=== PATIENT | female | born 1970 | race American Indian/Alaskan Native ===

== ENCOUNTER → 2018-02-14 | Outpatient (CLI) | payer MEDICARE | LOC: SLR 11:00 | PROVIDERS: ATTEND Otolaryngology | DX: G47.30 Sleep apnea, unspecified (principal); I10 Essential (primary) hypertension | CPT/HCPCS: 95810 ==

== ENCOUNTER 2018-03-14 11:00 | Outpatient (CLI) | payer MEDICARE | END 2018-03-14 11:01 | disposition home or self-care (01) | LOC: SLR 11:00 | PROVIDERS: ATTEND Otolaryngology | DX: G47.33 Obstructive sleep apnea (adult) (pediatric) (principal) | CPT/HCPCS: 95811 ==

== ENCOUNTER 2018-10-21 20:02 | Inpatient (IN) | payer MEDICARE ==
[2018-10-21] MEDS ORDERED: DECADRON IV ONE (20:14)
[2018-10-21] MEDS ORDERED: BENADRYL IV ONE (20:14)
[2018-10-21] MEDS ORDERED: PEPCID IV ONE (20:16)
--- NOTE | 2018-10-21 20:27 | Emergency Department Report ---
HPI - General Chief Complaint: Dyspnea/Respdistress Time Seen by Provider: 10/21/18 20:13 - HPI HPI: Room 2 The pt is a 48 y/o female p/w a cc of throat swelling. The pt states her sxs began 1 week ago with swelling of her neck and throat. The pt states she went to an Urgent Care clinic and was placed on steroids and benadryl. The pt states her sxs improved slightly but never resolved. Aprroximately 10 mins prior to arrival the pt states her symptoms worsened rapidly and she felt as though her throat was closing. ED Past Medical Hx - Past Medical History Hx Hypertension: Yes Additional medical history: Chronic back pain/dislocation - Surgical History Past Surgical History?: No Additional Surgical History: , Back surgery, carpal tunnel surg - Family History Family history: no significant - Social History Smoking Status: Never Smoker Substance Use Type: None - Medications Home Medications: Home Medications Medication Instructions Recorded Confirmed Last Taken Type Amoxicillin [Amoxicillin 250 MG/5 10 ml PO BID #200 ml 12/31/15 12/31/15 12/31/15 Rx Ml] Azithromycin [Zithromax TAB] 500 mg PO QDAY #7 tablet 12/31/15 Unknown Rx Diphenhydramine HCl [Benadryl 25 mg PO Q8HR #20 tablet 12/31/15 Unknown Rx Allergy TAB] Gabapentin [Neurontin] 300 mg PO TID 12/31/15 12/31/15 12/31/15 History HYDROcodone/APAP 7.5-325 [[place]] 15 ml PO Q4HR PRN #300 ml 12/31/15 12/31/15 12/31/15 Rx Lisinopril [Zestril] 20 mg PO QDAY 12/31/15 12/31/15 12/31/15 History Meloxicam [Mobic] 15 mg PO QDAY 12/31/15 12/31/15 12/31/15 History Oxycodone HCl/Acetaminophen 1 each PO Q6HR PRN 12/31/15 12/31/15 12/31/15 History [Percocet 10/325 mg] hydroCHLOROthiazide [HCTZ] 25 mg PO QDAY 12/31/15 12/31/15 12/31/15 History predniSONE [Deltasone] 20 mg PO QDAY #5 tab 12/31/15 Unknown Rx ED Review of Systems ROS: Stated complaint: TROUBLE SWALLOWING AND BREATHING Other details as noted in HPI Constitutional: no symptoms reported Eyes: denies: eye pain ENT: throat pain Respiratory: shortness of breath Endocrine: no symptoms reported Gastrointestinal: denies: abdominal pain Genitourinary: denies: dysuria Musculoskeletal: denies: back pain Skin: denies: lesions Neurological: denies: headache Physical Exam - Physical Exam Vital Signs: Vital Signs 10/21/18 10/21/18 20:11 20:20 Temperature 98.8 F Pulse Rate [ 84 Anterior Bilateral Throughout] Respiratory 22 Rate Respiratory 16 Rate [Anterior Bilateral Throughout] O2 Sat by Pulse 100 Oximetry Physical Exam: Gen: WD, WN female lying on stretcher appearing worried but in NAD HEENT- OP clear, there is no tongue swelling NECK: no stridor CV: rrr no m/r/g Lungs: CTA bilat Abd: s/nt/nd Skin: no rash or diaphoresis MS: no evidence of acute injury ED Course Vital Signs 10/21/18 10/21/18 20:11 20:20 Temperature 98.8 F Pulse Rate [ 84 Anterior Bilateral Throughout] Respiratory 22 Rate Respiratory 16 Rate [Anterior Bilateral Throughout] O2 Sat by Pulse 100 Oximetry - Reevaluation(s) Reevaluation #1: 10/21/18 20:53 pt states she feels much improved 10/21/18 20:53 Pt instructed to never take lisinopril or DAISY inhibitors again ED Medical Decision Making - Lab Data Result diagrams: 10/21/18 20:35 10/21/18 20:35 Laboratory Tests 10/21/18 10/21/18 20:35 20:35 WBC 11.7 H RBC 4.17 Hgb 12.5 Hct 37.5 MCV 90 MCH 30 MCHC 33 RDW 14.5 Plt Count 285 Lymph % (Auto) 29.9 [place] % (Auto) 7.3 Eos % (Auto) 0.6 Baso % (Auto) 1.4 Lymph # 3.5 [place] # 0.9 H Eos # 0.1 Baso # 0.2 H Seg Neutrophils % 60.8 Seg Neutrophils # 7.1 Sodium 138 Potassium 3.6 Chloride 97.3 L Carbon Dioxide 28 Anion Gap 16 BUN 16 Creatinine 0.7 Estimated GFR > 60 BUN/Creatinine Ratio 23 Glucose 168 H Calcium 8.9 - Radiology Data Radiology results: image reviewed (Soft tissue neck xr) interpreted by me: Soft tissue neck xr- no prevertebral swelling, no epiglottitis - Differential Diagnosis angioedema Critical care attestation.: If time is entered above; I have spent that time in minutes in the direct care of this critically ill patient, excluding procedure time. ED Disposition Clinical Impression: Angioedema, Shortness of breath Disposition: OP ADMIT IP TO THIS HOSP Is pt being admited?: Yes Does the pt Need Aspirin: No Condition: Fair Referrals: MILAD REYNOSO [Primary Care Provider] - 3-5 Days Time of Disposition: 21:01 (Hospitalist paged (Dr Limon))
[2018-10-21 20:47] LABS: Basophils # (Auto) 0.2 K/mm3 (0.0-0.1); Basophils % (Auto) 1.4 % (0.0-1.8); Eosinophils # (Auto) 0.1 K/mm3 (0.0-0.4); Eosinophils % (Auto) 0.6 % (0.0-4.3); Hematocrit 37.5 % (30.3-42.9); Hemoglobin 12.5 gm/dl (10.1-14.3); Lymphocytes # (Auto) 3.5 K/mm3 (1.2-5.4); Lymphocytes % (Auto) 29.9 % (13.4-35.0); Mean Corpuscular HGB Conc 33 % (30-34); Mean Corpuscular Volume 90 fl (79-97); Monocytes # (Auto) 0.9 K/mm3 (0.0-0.8); Monocytes % (Auto) 7.3 % (0.0-7.3); Platelet Count 285 K/mm3 (140-440); Red Blood Count 4.17 M/mm3 (3.65-5.03); Red Cell Distribution Width 14.5 % (13.2-15.2)
[2018-10-21 20:59] LABS: BUN/Creatinine Ratio 23; Blood Urea Nitrogen 16 mg/dL (7-17); Calcium 8.9 mg/dL (8.4-10.2); Hemolysis Index 8
--- NOTE | 2018-10-21 21:31 | XRay Report ---
FINAL REPORT EXAM: XR NECK SOFT TISSUE HISTORY: angioedema COMPARISON: None available. FINDINGS: Two views of the neck obtained. Visualized upper airway is patent. No suspicious thickening of the ep iglottis. Prevertebral soft tissues are within normal limits. IMPRESSION: Visualized upper airway is grossly patent by plain film.
[2018-10-21] MEDS ORDERED: SODIUM CHLORIDE FLUSH SYRINGE 10 ML IV PRN (22:03)
[2018-10-21] MEDS ORDERED: ZOFRAN IV PRN (22:03)
--- NOTE | 2018-10-21 22:03 | History and Physical Report ---
History of Present Illness Date of examination: 10/21/18 History of present illness: 48-year-old white male a history of hypertension, diabetes comes emergency room with complains of difficulty swallowing and her throat felt as if it was tightening up 2 weeks. Also complained that her tongue felt swollen. She was seen at the urgent care on Monday, she was given a shot of steroids, Benadryl and was discharged on a prednisone taper, however she continued to take her lisinopril. She returned today with the same symptoms. Status post racemic epi, steroids and Benadryl in the emergency room, states she feels better Review of systems Constitutional: no weight loss, chills, fever Ears, eyes, nose, mouth and throat: no nasal congestion, no nasal discharge, no sinus pressure, no vision change, no red eye. Neck: No neck pain or rigidity. Cardiovascular: no palpitations, chest pain Respiratory: no cough, shortness of breath Gastrointestinal: no hematochezia, abdominal pain Genitourinary : no frequency , no hematuria Musculoskeletal: no joint swelling or muscle ache Integumentary: no rash, no pruritis Neurological: no parathesias, no focal weakness Endocrine: no cold or heat intolerance, no polyuria or polydipsia Hematologic/Lymphatic: no easy bruising, no easy bleeding, no gland swelling Allergic/Immunologic: no urticaria PAST MEDICAL HISTORY: hypertension, diabetes PAST SURGICAL HISTORY: , back, carpal tunnel release SOCIAL HISTORY: Denies alcohol, drugs, tobacco FAMILY HISTORY: Hypertension Medications and Allergies Allergies Allergy/AdvReac Type Severity Reaction Status Date / Time amoxicillin Allergy Angioedema Verified 12/31/15 21:32 Home Medications Medication Instructions Recorded Confirmed Last Taken Type Amoxicillin [Amoxicillin 250 MG/5 10 ml PO BID #200 ml 12/31/15 12/31/15 Rx Ml] Azithromycin [Zithromax TAB] 500 mg PO QDAY #7 tablet 12/31/15 Unknown Rx Diphenhydramine HCl [Benadryl 25 mg PO Q8HR #20 tablet 12/31/15 Unknown Rx Allergy TAB] Gabapentin [Neurontin] 300 mg PO TID 12/31/15 12/31/15 12/31/15 History HYDROcodone/APAP 7.5-325 [[place]] 15 ml PO Q4HR PRN #300 ml 0312/31/15 12/31/15 Rx Lisinopril [Zestril] 20 mg PO QDAY 12/31/15 12/31/15 12/31/15 History Meloxicam [Mobic] 15 mg PO QDAY 12/31/15 12/31/15 12/31/15 History Oxycodone HCl/Acetaminophen 1 each PO Q6HR PRN 12/31/15 12/31/15 12/31/15 History [Percocet 10/325 mg] hydroCHLOROthiazide [HCTZ] 25 mg PO QDAY 12/31/15 12/31/15 12/31/15 History predniSONE [Deltasone] 20 mg PO QDAY #5 tab 12/31/15 Unknown Rx Exam - Physical Exam Narrative exam: General Apperance: The patient lying in bed, breathing comfortable HEENT: Normocephalic, atraumatic. Pupils equally round and reactive to light, EOMI, no sclericterus or JVD or thyromegaly or nodule. , no carotid bruit, mucous membranes moist, no exudate or erythema Heart: S1-S2, regular is rhythm Lungs: Clear to auscultation bilaterally, breathing comfortable Abdomen: Positive bowel sounds, soft, nontender, nondistended, no organomegaly Extremities: No edema cyanosis clubbing Skin: no rash, nodule, warm and dry Neuro: cranial nerves 2-12 intact, speech is fluent, motor/sensory intact - Constitutional Vitals: Temp Pulse Resp BP Pulse Ox 98.8 F 85 16 100 10/21/18 20:11 10/21/18 20:29 10/21/18 20:29 10/21/18 20:11 Results - Labs CBC & Chem 7: 10/21/18 20:35 10/21/18 20:35 Labs: Abnormal lab results 10/21/18 10/21/18 Range/Units 20:35 20:35 WBC 11.7 H (4.5-11.0) K/mm3 [place] # 0.9 H (0.0-0.8) K/mm3 Baso # 0.2 H (0.0-0.1) K/mm3 Chloride 97.3 L (98-107) mmol/L Glucose 168 H (65-100) mg/dL Assessment and Plan Extremities a soft tissue neck reviewed Assessment Angioedema secondary to DAISY inhibitor Hypertension Diabetes Plan Start steroids, Benadryl, Pepcid, hold DAISY inhibitor Check fingersticks and initiate insulin sliding scale DVT prophylaxis
[2018-10-21] MEDS ORDERED: D50W (25GM) Syringe IV PRN (22:52)
[2018-10-21] MEDS ORDERED: MORPHINE IV PRN (22:53)
[2018-10-21] MEDS: SOLU-Medrol IV SCH (23:28)
[2018-10-21] MEDS: BENADRYL IV SCH (23:28)
[2018-10-21] MEDS: NACL 0.45% 1000 ML 1,000 ML IV SCH (23:29)
[2018-10-22] MEDS: SOLU-Medrol IV SCH ×4 (04:16→23:35)
[2018-10-22] MEDS: BENADRYL IV SCH ×4 (04:16→23:35)
[2018-10-22 07:30] LABS: Hematocrit 37.1 % (30.3-42.9); Hemoglobin 12.8 gm/dl (10.1-14.3); Mean Corpuscular HGB Conc 35 % (30-34); Mean Corpuscular Volume 89 fl (79-97); Platelet Count 302 K/mm3 (140-440); Red Blood Count 4.15 M/mm3 (3.65-5.03); Red Cell Distribution Width 14.4 % (13.2-15.2)
[2018-10-22 07:36] LABS: BUN/Creatinine Ratio 19; Blood Urea Nitrogen 15 mg/dL (7-17); Calcium 8.7 mg/dL (8.4-10.2); Hemolysis Index 19
[2018-10-22] MEDS: HumaLOG SUB-Q SCH ×4 (08:25→21:57)
[2018-10-22] MEDS: LOVENOX SUB-Q SCH (09:29)
[2018-10-22] MEDS: PEPCID IV SCH ×2 (09:29→21:29)
[2018-10-22] MEDS: SODIUM CHLORIDE FLUSH SYRINGE 10 ML IV SCH ×2 (09:30→21:29)
[2018-10-22] MEDS ORDERED: AFLURIA QUAD 2018-2019 SYRINGE IM ONE (12:00)
[2018-10-22] MEDS ORDERED: PNEUMOVAX 23 IM ONE (12:00)
[2018-10-22 14:48] LABS: Band Neutrophils # (Manual) 0.8 K/mm3; Basophils % (Manual) 0 % (0.0-1.8); Eosinophils % (Manual) 0 % (0.0-4.3); RBC Morphology Normal; Total Cells Counted 100
--- NOTE | 2018-10-22 18:33 | Progress Note ---
Assessment and Plan Assessment and plan: --Angioedema; secondary to DAISY inhibitor's Avoid Lisinopril and ACEI group medications IV steroids, IV antihistamines, oxygen, supportive care --Type 2 diabetes mellitus; Accu-Chek sliding scale coverage and ADA diet and insulin --Hypertension; moderate control, continue current antihypertensives When necessary medications --Morbid obesity; BMI 38.3; advised diet modification and exercise as tolerated and weight reduction when medically stable --Hyponatremia, mild; closely monitor electrolytes; continue IV fluids; supportive care --DVT prophylaxis; Lovenox Closely monitor the patient and adjust management as needed History Interval history: Patient seen and examined medical records reviewed Admitted with angioedema, swelling slightly improved Alert awake oriented 3 Vital signs noted Hospitalist Physical - Constitutional Vitals: Temp Pulse Resp BP Pulse Ox 98.4 F 104 H 18 147/84 97 10/22/18 18:02 10/22/18 17:59 10/22/18 17:59 10/22/18 17:59 10/22/18 17:59 General appearance: Present: no acute distress, well-nourished, obese - EENT Eyes: Present: PERRL, EOM intact - Neck Neck: Present: supple, normal ROM - Respiratory Respiratory effort: normal Respiratory: negative: rales, rhonchi, wheezing - Cardiovascular Rhythm: regular Heart Sounds: Present: S1 & S2 - Extremities Extremities: no ischemia, No edema - Abdominal General gastrointestinal: soft, non-tender, non-distended, normal bowel sounds - Integumentary Integumentary: Present: clear, warm - Psychiatric Psychiatric: appropriate mood/affect, cooperative - Neurologic Neurologic: CNII-XII intact, moves all extremities Results - Labs CBC & Chem 7: 10/22/18 06:50 10/22/18 06:50 Labs: Laboratory Last Values WBC 11.3 K/mm3 (4.5-11.0) H 10/22/18 06:50 RBC 4.15 M/mm3 (3.65-5.03) 10/22/18 06:50 Hgb 12.8 gm/dl (10.1-14.3) 10/22/18 06:50 Hct 37.1 % (30.3-42.9) 10/22/18 06:50 MCV 89 fl (79-97) 10/22/18 06:50 MCH 31 pg (28-32) 10/22/18 06:50 MCHC 35 % (30-34) H 10/22/18 06:50 RDW 14.4 % (13.2-15.2) 10/22/18 06:50 Plt Count 302 K/mm3 (140-440) 10/22/18 06:50 Lymph % (Auto) 29.9 % (13.4-35.0) 10/21/18 20:35 [place] % (Auto) 7.3 % (0.0-7.3) 10/21/18 20:35 Eos % (Auto) 0.6 % (0.0-4.3) 10/21/18 20:35 Baso % (Auto) 1.4 % (0.0-1.8) 10/21/18 20:35 Lymph # 3.5 K/mm3 (1.2-5.4) 10/21/18 20:35 [place] # 0.9 K/mm3 (0.0-0.8) H 10/21/18 20:35 Eos # 0.1 K/mm3 (0.0-0.4) 10/21/18 20:35 Baso # 0.2 K/mm3 (0.0-0.1) H 10/21/18 20:35 Add Manual Diff Complete 10/22/18 06:50 Total Counted 100 10/22/18 06:50 Seg Neutrophils % 60.8 % (40.0-70.0) 10/21/18 20:35 Seg Neuts % (Manual) 80.0 % (40.0-70.0) H 10/22/18 06:50 Band Neutrophils % 7.0 % 10/22/18 06:50 Lymphocytes % (Manual) 11.0 % (13.4-35.0) L 10/22/18 06:50 Reactive Lymphs % (Man) 0 % 10/22/18 06:50 Monocytes % (Manual) 2.0 % (0.0-7.3) 10/22/18 06:50 Eosinophils % (Manual) 0 % (0.0-4.3) 10/22/18 06:50 Basophils % (Manual) 0 % (0.0-1.8) 10/22/18 06:50 Metamyelocytes % 0 % 10/22/18 06:50 Myelocytes % 0 % 10/22/18 06:50 Promyelocytes % 0 % 10/22/18 06:50 Blast Cells % 0 % 10/22/18 06:50 Nucleated RBC % Not Reportable 10/22/18 06:50 Seg Neutrophils # 7.1 K/mm3 (1.8-7.7) 10/21/18 20:35 Seg Neutrophils # Man 9.0 K/mm3 (1.8-7.7) H 10/22/18 06:50 Band Neutrophils # 0.8 K/mm3 10/22/18 06:50 Lymphocytes # (Manual) 1.2 K/mm3 (1.2-5.4) 10/22/18 06:50 Abs React Lymphs (Man) 0.0 K/mm3 10/22/18 06:50 Monocytes # (Manual) 0.2 K/mm3 (0.0-0.8) 10/22/18 06:50 Eosinophils # (Manual) 0.0 K/mm3 (0.0-0.4) 10/22/18 06:50 Basophils # (Manual) 0.0 K/mm3 (0.0-0.1) 10/22/18 06:50 Metamyelocytes # 0.0 K/mm3 10/22/18 06:50 Myelocytes # 0.0 K/mm3 10/22/18 06:50 Promyelocytes # 0.0 K/mm3 10/22/18 06:50 Blast Cells # 0.0 K/mm3 10/22/18 06:50 WBC Morphology Not Reportable 10/22/18 06:50 Hypersegmented Neuts Not Reportable 10/22/18 06:50 Hyposegmented Neuts Not Reportable 10/22/18 06:50 Hypogranular Neuts Not Reportable 10/22/18 06:50 Smudge Cells Not Reportable 10/22/18 06:50 Toxic Granulation Not Reportable 10/22/18 06:50 Toxic Vacuolation Not Reportable 10/22/18 06:50 Dohle Bodies Not Reportable 10/22/18 06:50 Pelger-Huet Anomaly Not Reportable 10/22/18 06:50 Sreekanth Rods Not Reportable 10/22/18 06:50 Platelet Estimate Not Reportable 10/22/18 06:50 Clumped Platelets Not Reportable 10/22/18 06:50 Plt Clumps, EDTA Not Reportable 10/22/18 06:50 Large Platelets Not Reportable 10/22/18 06:50 Giant Platelets Not Reportable 10/22/18 06:50 Platelet Satelliting Not Reportable 10/22/18 06:50 Plt Morphology Comment Not Reportable 10/22/18 06:50 RBC Morphology Normal 10/22/18 06:50 Dimorphic RBCs Not Reportable 10/22/18 06:50 Polychromasia Not Reportable 10/22/18 06:50 Hypochromasia Not Reportable 10/22/18 06:50 Poikilocytosis Not Reportable 10/22/18 06:50 Anisocytosis Not Reportable 10/22/18 06:50 Microcytosis Not Reportable 10/22/18 06:50 Macrocytosis Not Reportable 10/22/18 06:50 Spherocytes Not Reportable 10/22/18 06:50 Pappenheimer Bodies Not Reportable 10/22/18 06:50 Sickle Cells Not Reportable 10/22/18 06:50 Target Cells Not Reportable 10/22/18 06:50 Tear Drop Cells Not Reportable 10/22/18 06:50 Ovalocytes Not Reportable 10/22/18 06:50 Helmet Cells Not Reportable 10/22/18 06:50 [place] Bodies Not Reportable 10/22/18 06:50 [place] Rings Not Reportable 10/22/18 06:50 [place] Cells Not Reportable 10/22/18 06:50 Bite Cells Not Reportable 10/22/18 06:50 Crenated Cell Not Reportable 10/22/18 06:50 Elliptocytes Not Reportable 10/22/18 06:50 Acanthocytes (Spur) Not Reportable 10/22/18 06:50 Rouleaux Not Reportable 10/22/18 06:50 Hemoglobin C Crystals Not Reportable 10/22/18 06:50 Schistocytes Not Reportable 10/22/18 06:50 Malaria parasites Not Reportable 10/22/18 06:50 Randy Bodies Not Reportable 10/22/18 06:50 Hem Pathologist Commnt No 10/22/18 06:50 Sodium 136 mmol/L (137-145) L 10/22/18 06:50 Potassium 4.6 mmol/L (3.6-5.0) D 10/22/18 06:50 Chloride 95.5 mmol/L (98-107) L 10/22/18 06:50 Carbon Dioxide 27 mmol/L (22-30) 10/22/18 06:50 Anion Gap 18 mmol/L 10/22/18 06:50 BUN 15 mg/dL (7-17) 10/22/18 06:50 Creatinine 0.8 mg/dL (0.7-1.2) 10/22/18 06:50 Estimated GFR > 60 ml/min 10/22/18 06:50 BUN/Creatinine Ratio 19 % 10/22/18 06:50 Glucose 263 mg/dL (65-100) H 10/22/18 06:50 POC Glucose 290 (70-105) H 10/22/18 16:43 Calcium 8.7 mg/dL (8.4-10.2) 10/22/18 06:50
[2018-10-23] MEDS: NACL 0.45% 1000 ML 1,000 ML IV SCH ×2 (02:30→22:04)
[2018-10-23] MEDS: BENADRYL IV SCH ×4 (05:26→22:03)
[2018-10-23] MEDS: SOLU-Medrol IV SCH ×2 (05:27→10:20)
[2018-10-23] MEDS: TYLENOL PO PRN ×2 (05:46→08:47)
[2018-10-23] MEDS: HumaLOG SUB-Q SCH ×4 (08:49→22:04)
[2018-10-23] MEDS: PEPCID IV SCH ×2 (10:20→22:03)
[2018-10-23] MEDS: LOVENOX SUB-Q SCH (10:21)
[2018-10-23] MEDS: SODIUM CHLORIDE FLUSH SYRINGE 10 ML IV SCH ×2 (12:41→22:13)
--- NOTE | 2018-10-23 15:04 | Progress Note ---
Assessment and Plan Assessment and plan: --Angioedema; secondary to DAISY inhibitor's Symptoms Slightly improved, continue current management Tapering dose of steroids, Benadryl Patient cannot have Lisinopril and ACEI group medications oxygen, supportive care --Type 2 diabetes mellitus; uncontrolled , due to high-dose steroid use Accu-Chek sliding scale coverage and ADA diet and insulin add home medications metformin 500 twice a day, check hemoglobin A1c --Hypertension; moderate control, continue current antihypertensives When necessary medications --Morbid obesity; BMI 38.3; advised diet modification and exercise as tolerated and weight reduction when medically stable --Hyponatremia, mild; closely monitor electrolytes; continue IV fluids; supportive care --DVT prophylaxis; Lovenox Closely monitor the patient and adjust management as needed Plan of care reviewed with the patient and her nurse possible discharge in 1-2 days if stable History Interval history: Patient seen and examined medical records reviewed No new events reported by the nursing staff Patient feels slightly better, tolerating diet Alert awake oriented 3 Vital signs reviewed Hospitalist Physical - Constitutional Vitals: Temp Pulse Resp BP Pulse Ox 98.6 F 87 18 149/92 97 10/23/18 09:19 10/23/18 11:37 10/23/18 09:19 10/23/18 11:37 10/23/18 11:37 General appearance: Present: no acute distress, well-nourished, obese - EENT Eyes: Present: PERRL, EOM intact - Neck Neck: Present: supple, normal ROM - Respiratory Respiratory effort: normal Respiratory: bilateral: diminished, negative: rales, rhonchi, wheezing - Cardiovascular Rhythm: regular Heart Sounds: Present: S1 & S2 - Extremities Extremities: no ischemia, No edema - Abdominal General gastrointestinal: soft, non-tender, non-distended, normal bowel sounds - Integumentary Integumentary: Present: clear, warm - Psychiatric Psychiatric: appropriate mood/affect, cooperative - Neurologic Neurologic: CNII-XII intact, moves all extremities Results - Labs CBC & Chem 7: 10/22/18 06:50 10/22/18 06:50 Labs: Laboratory Last Values WBC 11.3 K/mm3 (4.5-11.0) H 10/22/18 06:50 RBC 4.15 M/mm3 (3.65-5.03) 10/22/18 06:50 Hgb 12.8 gm/dl (10.1-14.3) 10/22/18 06:50 Hct 37.1 % (30.3-42.9) 10/22/18 06:50 MCV 89 fl (79-97) 10/22/18 06:50 MCH 31 pg (28-32) 10/22/18 06:50 MCHC 35 % (30-34) H 10/22/18 06:50 RDW 14.4 % (13.2-15.2) 10/22/18 06:50 Plt Count 302 K/mm3 (140-440) 10/22/18 06:50 Lymph % (Auto) 29.9 % (13.4-35.0) 10/21/18 20:35 [place] % (Auto) 7.3 % (0.0-7.3) 10/21/18 20:35 Eos % (Auto) 0.6 % (0.0-4.3) 10/21/18 20:35 Baso % (Auto) 1.4 % (0.0-1.8) 10/21/18 20:35 Lymph # 3.5 K/mm3 (1.2-5.4) 10/21/18 20:35 [place] # 0.9 K/mm3 (0.0-0.8) H 10/21/18 20:35 Eos # 0.1 K/mm3 (0.0-0.4) 10/21/18 20:35 Baso # 0.2 K/mm3 (0.0-0.1) H 10/21/18 20:35 Add Manual Diff Complete 10/22/18 06:50 Total Counted 100 10/22/18 06:50 Seg Neutrophils % 60.8 % (40.0-70.0) 10/21/18 20:35 Seg Neuts % (Manual) 80.0 % (40.0-70.0) H 10/22/18 06:50 Band Neutrophils % 7.0 % 10/22/18 06:50 Lymphocytes % (Manual) 11.0 % (13.4-35.0) L 10/22/18 06:50 Reactive Lymphs % (Man) 0 % 10/22/18 06:50 Monocytes % (Manual) 2.0 % (0.0-7.3) 10/22/18 06:50 Eosinophils % (Manual) 0 % (0.0-4.3) 10/22/18 06:50 Basophils % (Manual) 0 % (0.0-1.8) 10/22/18 06:50 Metamyelocytes % 0 % 10/22/18 06:50 Myelocytes % 0 % 10/22/18 06:50 Promyelocytes % 0 % 10/22/18 06:50 Blast Cells % 0 % 10/22/18 06:50 Nucleated RBC % Not Reportable 10/22/18 06:50 Seg Neutrophils # 7.1 K/mm3 (1.8-7.7) 10/21/18 20:35 Seg Neutrophils # Man 9.0 K/mm3 (1.8-7.7) H 10/22/18 06:50 Band Neutrophils # 0.8 K/mm3 10/22/18 06:50 Lymphocytes # (Manual) 1.2 K/mm3 (1.2-5.4) 10/22/18 06:50 Abs React Lymphs (Man) 0.0 K/mm3 10/22/18 06:50 Monocytes # (Manual) 0.2 K/mm3 (0.0-0.8) 10/22/18 06:50 Eosinophils # (Manual) 0.0 K/mm3 (0.0-0.4) 10/22/18 06:50 Basophils # (Manual) 0.0 K/mm3 (0.0-0.1) 10/22/18 06:50 Metamyelocytes # 0.0 K/mm3 10/22/18 06:50 Myelocytes # 0.0 K/mm3 10/22/18 06:50 Promyelocytes # 0.0 K/mm3 10/22/18 06:50 Blast Cells # 0.0 K/mm3 10/22/18 06:50 WBC Morphology Not Reportable 10/22/18 06:50 Hypersegmented Neuts Not Reportable 10/22/18 06:50 Hyposegmented Neuts Not Reportable 10/22/18 06:50 Hypogranular Neuts Not Reportable 10/22/18 06:50 Smudge Cells Not Reportable 10/22/18 06:50 Toxic Granulation Not Reportable 10/22/18 06:50 Toxic Vacuolation Not Reportable 10/22/18 06:50 Dohle Bodies Not Reportable 10/22/18 06:50 Pelger-Huet Anomaly Not Reportable 10/22/18 06:50 Sreekanth Rods Not Reportable 10/22/18 06:50 Platelet Estimate Not Reportable 10/22/18 06:50 Clumped Platelets Not Reportable 10/22/18 06:50 Plt Clumps, EDTA Not Reportable 10/22/18 06:50 Large Platelets Not Reportable 10/22/18 06:50 Giant Platelets Not Reportable 10/22/18 06:50 Platelet Satelliting Not Reportable 10/22/18 06:50 Plt Morphology Comment Not Reportable 10/22/18 06:50 RBC Morphology Normal 10/22/18 06:50 Dimorphic RBCs Not Reportable 10/22/18 06:50 Polychromasia Not Reportable 10/22/18 06:50 Hypochromasia Not Reportable 10/22/18 06:50 Poikilocytosis Not Reportable 10/22/18 06:50 Anisocytosis Not Reportable 10/22/18 06:50 Microcytosis Not Reportable 10/22/18 06:50 Macrocytosis Not Reportable 10/22/18 06:50 Spherocytes Not Reportable 10/22/18 06:50 Pappenheimer Bodies Not Reportable 10/22/18 06:50 Sickle Cells Not Reportable 10/22/18 06:50 Target Cells Not Reportable 10/22/18 06:50 Tear Drop Cells Not Reportable 10/22/18 06:50 Ovalocytes Not Reportable 10/22/18 06:50 Helmet Cells Not Reportable 10/22/18 06:50 [place] Bodies Not Reportable 10/22/18 06:50 [place] Rings Not Reportable 10/22/18 06:50 [place] Cells Not Reportable 10/22/18 06:50 Bite Cells Not Reportable 10/22/18 06:50 Crenated Cell Not Reportable 10/22/18 06:50 Elliptocytes Not Reportable 10/22/18 06:50 Acanthocytes (Spur) Not Reportable 10/22/18 06:50 Rouleaux Not Reportable 10/22/18 06:50 Hemoglobin C Crystals Not Reportable 10/22/18 06:50 Schistocytes Not Reportable 10/22/18 06:50 Malaria parasites Not Reportable 10/22/18 06:50 Randy Bodies Not Reportable 10/22/18 06:50 Hem Pathologist Commnt No 10/22/18 06:50 Sodium 136 mmol/L (137-145) L 10/22/18 06:50 Potassium 4.6 mmol/L (3.6-5.0) D 10/22/18 06:50 Chloride 95.5 mmol/L (98-107) L 10/22/18 06:50 Carbon Dioxide 27 mmol/L (22-30) 10/22/18 06:50 Anion Gap 18 mmol/L 10/22/18 06:50 BUN 15 mg/dL (7-17) 10/22/18 06:50 Creatinine 0.8 mg/dL (0.7-1.2) 10/22/18 06:50 Estimated GFR > 60 ml/min 10/22/18 06:50 BUN/Creatinine Ratio 19 % 10/22/18 06:50 Glucose 263 mg/dL (65-100) H 10/22/18 06:50 POC Glucose 261 (70-105) H 10/23/18 11:41 Calcium 8.7 mg/dL (8.4-10.2) 10/22/18 06:50
[2018-10-23] MEDS: GLUCOPHAGE PO SCH (17:44)
[2018-10-23] MEDS ORDERED: SOLU-Medrol IV SCH (22:00)
[2018-10-24] MEDS ORDERED: ALUM-MAG HYDROX-SIMETH 200-200-20MG/5ML PO PRN (02:00)
[2018-10-24] MEDS: BENADRYL IV SCH ×3 (05:11→17:00)
[2018-10-24] MEDS: LOVENOX SUB-Q SCH (09:20)
[2018-10-24] MEDS: HumaLOG SUB-Q SCH ×3 (09:21→18:00)
[2018-10-24] MEDS: GLUCOPHAGE PO SCH ×2 (09:21→17:54)
[2018-10-24] MEDS: SODIUM CHLORIDE FLUSH SYRINGE 10 ML IV SCH (09:21)
[2018-10-24] MEDS ORDERED: APRESOLINE IV PRN (09:27)
[2018-10-24] MEDS ORDERED: DELTASONE PO SCH (10:00)
[2018-10-24] MEDS ORDERED: PEPCID PO SCH (10:00)
--- NOTE | 2018-10-24 11:46 | Discharge Summary ---
Providers - Providers Date of Admission: 10/21/18 22:03 Date of discharge: 10/24/18 Attending physician: AVANI GRIFFIN Primary care physician: MILAD REYNOSO Hospitalization Reason for admission: difficulty swallowing/tongue and lip swelling/angioedema Condition: Fair Pertinent studies: X-ray soft tissue neck ; no acute abnormality Hospital course: 40-year-old obese -Tog[place] female patient with significant history of hypertension diabetes mellitus, on lisinopril at home was admitted through emergency room with difficulty swallowing tightening and swelling of her throat off and on for 2 weeks Patient was seen at the urgent care center and received steroids and Benadryl and discharged on prednisone taper patient is on lisinopril, patient presented to the emergency room with similar complaints of tongue swelling difficulty swallowing received epinephrine and steroids and Benadryl and was admitted to the hospital symptomatically managed Lisinopril and DAISY inhibitor related medications for spelled, Patient's blood pressure specialist was closely monitored medications optimized Blood sugars were very uncontrolled because of high-dose steroids, Today patient is comfortable in no new complaints Mild vaginal yeast infection, treated with Diflucan 150 mg 1 dose Ambulatory tolerating oral nutrition, Vital signs stable Physical examination prior to discharge summary remarkable, Patient is hemodynamically and clinically stable at discharge Discharge diagnosis; --Angioedema; secondary to DAISY inhibitor's; symptoms improved Lisinopril held, discharge on tapering dose of steroids and Benadryl Patient advised not to take lisinopril or ACEI group medications --Type 2 diabetes mellitus; uncontrolled , due to high-dose steroid use Sliding scale coverage oral hypoglycemics --Hypertension; moderate control, continue current antihypertensives Hydralazine --Morbid obesity; BMI 38.3; advised diet modification and weight reduction --Hyponatremia, resolved Hemodynamically and clinically stable at discharge Disposition: DC-01 TO HOME OR SELFCARE Time spent for discharge: 32 min Core Measure Documentation - Palliative Care Palliative Care/ Comfort Measures: Not Applicable - Core Measures Any of the following diagnoses?: none Exam - Constitutional Vitals: Temp Pulse Resp BP Pulse Ox 98.4 F 71 16 140/91 96 10/24/18 07:52 10/24/18 07:52 10/24/18 07:52 10/24/18 07:52 10/24/18 07:52 General appearance: Present: no acute distress, well-nourished - EENT Eyes: Present: PERRL, EOM intact - Neck Neck: Present: supple, normal ROM - Respiratory Respiratory effort: normal Respiratory: negative: rales, rhonchi, wheezing - Cardiovascular Rhythm: regular Heart Sounds: Present: S1 & S2 - Extremities Extremities: no ischemia, No edema - Abdominal General gastrointestinal: Present: soft, non-tender, non-distended, normal bowel sounds - Integumentary Integumentary: Present: clear, warm - Musculoskeletal Musculoskeletal: strength equal bilaterally - Psychiatric Psychiatric: appropriate mood/affect, cooperative - Neurologic Neurologic: CNII-XII intact, moves all extremities Plan Activity: no restrictions Diet: diabetic Additional Instructions: You are allergic to lisinopril/ ACEI group of medications, do not take these medications. Advised weight reduction Follow up with: MILAD REYNOSO [Primary Care Provider] - 3-5 Days Prescriptions: RX: Famotidine [Pepcid] 20 mg PO BID #30 tablet RX: hydrALAZINE [Apresoline TAB] 25 mg PO Q8HR #90 tablet RX: metFORMIN [Glucophage] 500 mg PO BIDDIAB #30 tablet RX: predniSONE [Deltasone] 10 mg PO DAILY #10 tablet
[2018-10-24] MEDS ORDERED: DIFLUCAN PO ONE (13:00)
[2018-10-24] MEDS ORDERED: APRESOLINE PO SCH (14:00)
[2018-10-24 18:28] VITALS: BP 151/89
== END 2018-10-24 18:40 | disposition home or self-care (01) | DRG 916 ==
LOC: ED 20:02 → 4A 22:03
PROVIDERS: ADMIT Internal Medicine; ATTEND Internal Medicine
PROC: 3E0234Z Introduction of Serum, Toxoid and Vaccine into Muscle, Percutaneous Approach (ICD-10-PCS; principal; 2018-10-22)
DX: T78.3XXA Angioneurotic edema, initial encounter (principal); E87.1 Hypo-osmolality and hyponatremia; I10 Essential (primary) hypertension; M54.9 Dorsalgia, unspecified; E66.01 Morbid (severe) obesity due to excess calories; E11.9 Type 2 diabetes mellitus without complications; Z82.49 Family history of ischemic heart disease and other diseases of the circulatory system; Z68.38 Body mass index [BMI] 38.0-38.9, adult; Z71.3 Dietary counseling and surveillance; Z23 Encounter for immunization
CPT/HCPCS: 36415; 70360; 80048; 82962; 85007; 85025; 90471; 90686; 90732; 93005; 93010; 94640; G0378; G0008; G0009; J1100; J1200; J1650; J1815; J2920; J2930; J7030; J7512

== ENCOUNTER 2019-01-22 07:29 | Day surgery (SDC) | payer MEDICARE ==
[~2019-01-22 07:29] MED LIST: NACL 0.9% 1000 ML 1,000 ML IV SCH
[2019-01-22] MEDS ORDERED: VERSED ONE (10:03)
[2019-01-22] MEDS ORDERED: DIPRIVAN 10 MG/ML IV ONE ×2 (10:03→10:39)
[2019-01-22 11:21] VITALS: BP 129/87
--- NOTE | 2019-01-22 11:23 | Operative Report ---
PREOPERATIVE DIAGNOSIS: Morbid obesity. POSTOPERATIVE DIAGNOSIS: Moderate hiatal hernia, approximately 3 cm. PROCEDURE: EGD. ANESTHESIA: MAC. COMPLICATIONS: None. BLEEDING: None. SPECIMENS: None. INDICATIONS: The patient is a 48-year-old female with a history of morbid obesity. She is here for a preoperative EGD. Informed consent was obtained. DESCRIPTION OF PROCEDURE: The patient was brought to the operating GI suite where she was placed in the left lateral decubitus position and underwent MAC anesthesia. A bite block was placed and a timeout was called. A standard adult gastroscope was inserted into the oropharynx, down the esophagus, into the stomach and the first portion of the duodenum. On retroflexion view, she was noted to have a moderate sized hiatal hernia approximately 3-4 cm. There were no other abnormalities up to the level of D1. After this, the air was suctioned out. The gastroscope was removed. The patient tolerated the procedure with no issues and was transferred to the PACU in stable condition. JOB# [id number] ANGELINE/KADI
== END 2019-01-22 07:30 | disposition home or self-care (01) ==
LOC: GIO 07:29
PROVIDERS: ATTEND Specialist
DX: K30 Functional dyspepsia (principal); K44.9 Diaphragmatic hernia without obstruction or gangrene; E66.01 Morbid (severe) obesity due to excess calories; E11.9 Type 2 diabetes mellitus without complications; E78.00 Pure hypercholesterolemia, unspecified; I10 Essential (primary) hypertension; K21.9 Gastro-esophageal reflux disease without esophagitis; Z79.899 Other long term (current) drug therapy; Z88.6 Allergy status to analgesic agent; Z79.84 Long term (current) use of oral hypoglycemic drugs; Z90.710 Acquired absence of both cervix and uterus; Z98.891 History of uterine scar from previous surgery; Z68.35 Body mass index [BMI] 35.0-35.9, adult; Z88.8 Allergy status to other drugs, medicaments and biological substances
CPT/HCPCS: 43235; 82962; J2250; J2704; J7030

== ENCOUNTER 2019-02-05 07:33 | Inpatient (IN) | payer MEDICARE ==
--- NOTE | 2019-02-04 10:59 | Anesthesia Consultation ---
Anesthesia Consult and Med Hx Date of service: 02/04/19 - Airway Anesthetic Teeth Evaluation: Good ROM Head & Neck: Adequate Mental/Hyoid Distance: Adequate Mallampati Class: Class II Intubation Access Assessment: Probably Good - Pulmonary Exam CTA: Yes - Cardiac Exam Cardiac Exam: RRR - Pre-Operative Health Status ASA Pre-Surgery Classification: ASA3 Proposed Anesthetic Plan: General - Pulmonary Hx Smoking: No Hx Respiratory Symptoms: No Hx Sleep Apnea: Yes (noncompliant with CPAP) - Cardiovascular System Hx Hypertension: Yes Hx Heart Attack/AMI: No (normal nuc stress test) Hx Percutaneous Transluminal Coronary Angioplasty (PTCA): No Hx Cardia Arrhythmia: No - Central Nervous System CVA: No Hx Back Pain: Yes Hx Psychiatric Problems: No - Gastrointestinal Hx Gastroesophageal Reflux Disease: Yes (severe despite medications) - Endocrine Hx Renal Disease: No Hx Liver Disease: No Hx Non-Insulin Dependent Diabetes: Yes Hx Thyroid Disease: No - Other Systems Hx Alcohol Use: Yes Hx Substance Use: No Hx Cancer: No Hx Obesity: Yes - Additional Comments Anesthesia Medical History Comments: Hx PONV; improved with scop patch. Severe GERD; consider RSI.
[~2019-02-05 07:33] MED LIST changes: +LACTATED RINGERS 1,000 ML IV SCH; -NACL 0.9% 1000 ML 1,000 ML IV SCH; +TRANSDERM-SCOP TD NR; +VERSED IV SCH
[2019-02-05] MEDS ORDERED: SUBLIMAZE IV PRN (10:12)
--- NOTE | 2019-02-05 10:12 | Anesthesia Day of Surgery ---
Anesthesia Day of Surgery - Day of Surgery Patient Examined: Yes Patient H&P Reviewed: Yes Patient is NPO: Yes
[2019-02-05] MEDS ORDERED: PEPCID IV ONE (11:00)
[2019-02-05] MEDS ORDERED: ZEMURON IV ONE (12:22)
[2019-02-05] MEDS ORDERED: QUELICIN ONE (12:22)
[2019-02-05] MEDS ORDERED: DIPRIVAN 10 MG/ML IV ONE (12:22)
[2019-02-05] MEDS ORDERED: SUBLIMAZE ONE (12:22)
[2019-02-05] MEDS ORDERED: XYLOCAINE MPF 2% ONE (12:22)
[2019-02-05] MEDS ORDERED: ZOFRAN IV PRN (12:29)
[2019-02-05] MEDS ORDERED: NORCO PO PRN (12:29)
[2019-02-05] MEDS ORDERED: APRESOLINE IV PRN (12:29)
[2019-02-05] MEDS ORDERED: DILAUDID IV PRN (12:29)
[2019-02-05] MEDS ORDERED: REGLAN IV PRN (12:29)
[2019-02-05] MEDS ORDERED: MARCAINE-EPI 0.5%-1:200,000 INFILTRATI ONE (12:53)
[2019-02-05] MEDS ORDERED: XYLOCAINE 1% 20 mL ONE (12:53)
[2019-02-05] MEDS ORDERED: FLAGYL 500 MG/100 ML 500 MG/100 ML BAG IV NR (13:00)
[2019-02-05] MEDS ORDERED: LEVAQUIN 500MG/100ML 500 MG/100 ML BAG IV NR (13:00)
[2019-02-05] MEDS ORDERED: LACTATED RINGERS 1,000 ML IV SCH (13:00)
[2019-02-05] MEDS ORDERED: LOVENOX SUB-Q NR (13:00)
[2019-02-05] MEDS ORDERED: BRIDION IV ONE (13:48)
[2019-02-05] MEDS: NEURONTIN PO SCH ×2 (14:08→22:09)
[2019-02-05] MEDS: TORADOL IV SCH ×2 (14:15→19:03)
[2019-02-05] MEDS: MYLICON PO PRN ×2 (14:27→22:08)
[2019-02-05] MEDS: GLUCOPHAGE PO SCH (17:05)
[2019-02-06] MEDS: TORADOL IV SCH ×2 (02:17→19:17)
[2019-02-06] MEDS: NEURONTIN PO SCH (06:08)
--- NOTE | 2019-02-06 06:13 | Discharge Summary ---
Providers - Providers Date of Admission: 02/05/19 07:33 Date of discharge: 02/06/19 Attending physician: EDER BOYD Primary care physician: MILAD REYNOSO Hospitalization Reason for admission: postop Condition: Good Procedures: 02/05/19: Laparoscopic sleeve gastrectomy Hospital course: 48F admitted after her operation for routine postop care. She had no major issues, tolerated a CLD, and was dc home POD#1. Disposition: DC-01 TO HOME OR SELFCARE Core Measure Documentation - Palliative Care Palliative Care/ Comfort Measures: Not Applicable - Core Measures Any of the following diagnoses?: none - VTE Discharge Requirements Deep Vein Thrombosis/Pulmonary Embolism Present on Admission: No - Acute MD Discharge Requirements Aspirin at discharge: No Reason for no aspirin on DC: Surgical contraindication - Heart Failure Discharge Requirements DAISY/ARB for LVSD if EF <40%: Not Applicable - Stroke Discharge Requirements Statin for LDL = or >70 mg/dl on DC: Not Applicable Exam - Physical Exam Narrative exam: Gen: AAO,NAD Heart: RRR Lungs: CTAB Abd: soft, MO, nt, nd, incisions c/di - Constitutional Vitals: Temp Pulse Resp BP Pulse Ox 98.3 F 75 16 132/84 99 02/06/19 04:45 02/06/19 04:45 02/06/19 04:45 02/06/19 04:45 02/06/19 04:45 Plan Diet: clear liquids Wound: keep clean and dry Special Instructions: no heavy lifting Additional Instructions: leslie Boyd as scheduled Follow up with: MILAD REYNOSO MD [Primary Care Provider] - 7 Days
[2019-02-06 07:48] LABS: Basophils % (Auto) 0.3 % (0.0-1.8); Lymphocytes # (Auto) 0.9 K/mm3 (1.2-5.4); Lymphocytes % (Auto) 13.5 % (13.4-35.0); Mean Corpuscular HGB Conc 34 % (30-34); Mean Corpuscular Volume 90 fl (79-97); Monocytes # (Auto) 0.5 K/mm3 (0.0-0.8); Monocytes % (Auto) 7.3 % (0.0-7.3); Platelet Count 265 K/mm3 (140-440); Red Blood Count 3.87 M/mm3 (3.65-5.03); Red Cell Distribution Width 13.6 % (13.2-15.2)
[2019-02-06] MEDS ORDERED: GLUCOTROL PO SCH (08:00)
[2019-02-06 08:11] LABS: Alanine Aminotransferase 14 units/L (7-56); Albumin 3.6 g/dL (3.9-5); BUN/Creatinine Ratio 10; Blood Urea Nitrogen 7 mg/dL (7-17); Calcium 8.4 mg/dL (8.4-10.2); Hemolysis Index 5
[2019-02-06] MEDS: GLUCOPHAGE PO SCH (08:47)
[2019-02-06] MEDS ORDERED: PEPCID PO SCH (10:00)
[2019-02-06] MEDS ORDERED: LOVENOX SUB-Q SCH (10:00)
[2019-02-06] MEDS ORDERED: HCTZ PO SCH (10:00)
[2019-02-06 11:36] VITALS: BP 124/71
== END 2019-02-06 14:30 | disposition home or self-care (01) | DRG 621 ==
LOC: 3A 07:33 → 3B-SURG 14:14
PROVIDERS: ADMIT Specialist; ATTEND Specialist
PROC: 0DB64Z3 Excision of Stomach, Percutaneous Endoscopic Approach, Vertical (ICD-10-PCS; principal; 2019-02-05)
PROC: 0BQT4ZZ Repair Diaphragm, Percutaneous Endoscopic Approach (ICD-10-PCS; 2019-02-05)
DX: E66.01 Morbid (severe) obesity due to excess calories (principal); G47.30 Sleep apnea, unspecified; E11.9 Type 2 diabetes mellitus without complications; I10 Essential (primary) hypertension; K21.9 Gastro-esophageal reflux disease without esophagitis; Z68.36 Body mass index [BMI] 36.0-36.9, adult; Z79.4 Long term (current) use of insulin
CPT/HCPCS: 36415; 80053; 82962; 85025; 88307; 94760; G0378; A9270-GY; J0330; J0360; J1650; J1885; J1956; J2250; J2704; J3010; J7120

== ENCOUNTER 2019-02-26 12:00 | Emergency (ER) | payer MEDICARE ==
--- NOTE | 2019-02-26 12:22 | Emergency Department Report ---
Chief Complaint: Abdominal Pain Stated Complaint: PAIN FROM SURGERY Time Seen by Provider: 02/26/19 12:17 - HPI History of Present Illness: This is a 48 y.o. F. that presents to the ER with drainage from surgical incision for 3 days. Patient states she had gastric bypass a few weeks ago at this hospital. She reports pain at umbilical incision. She tried to make an appointment with PCP [facility] but told to come to the ER. - Exam Vital Signs: Vital Signs 02/26/19 12:19 Temperature 98.1 F Pulse Rate 85 Respiratory 16 Rate Blood Pressure 144/92 O2 Sat by Pulse 100 Oximetry MSE screening note: Focused history and physical exam performed. Due to findings the following was ordered: This initial assessment/diagnostic orders/clinical plan/treatment(s) is/are subject to change based on patient's health status, clinical progression and re- assessment by fellow clinical providers in the ED. Further treatment and workup at subsequent clinical providers discretion. Patient/guardians urged not to elope from the ED as their condition may be serious if not clinically assessed and managed. Initial orders include: 1- Patient sent to [facility] for further evaluation and treatment 2- Labs ED Disposition for MSE Condition: Stable Instructions: Abdominal Pain (ED)
[2019-02-26 12:50] LABS: Basophils # (Auto) 0.1 K/mm3 (0.0-0.1); Basophils % (Auto) 1.3 % (0.0-1.8); Eosinophils # (Auto) 0.1 K/mm3 (0.0-0.4); Hematocrit 35.4 % (30.3-42.9); Lymphocytes # (Auto) 1.6 K/mm3 (1.2-5.4); Lymphocytes % (Auto) 21.3 % (13.4-35.0); Mean Corpuscular HGB Conc 34 % (30-34); Mean Corpuscular Volume 91 fl (79-97); Monocytes # (Auto) 0.5 K/mm3 (0.0-0.8); Monocytes % (Auto) 6.8 % (0.0-7.3); Platelet Count 371 K/mm3 (140-440); Red Cell Distribution Width 13.8 % (13.2-15.2)
[2019-02-26] MEDS ORDERED: NACL 0.9% 1000 ML 1,000 ML IV ONE (13:18)
[2019-02-26] MEDS ORDERED: MORPHINE IV ONE ×2 (13:18→16:19)
--- NOTE | 2019-02-26 13:23 | Emergency Department Report ---
<JOIE GONZALEZ - Last Filed: 02/26/19 17:25> ED Abdominal Pain HPI - General Chief Complaint: Abdominal Pain Stated Complaint: PAIN FROM SURGERY Time Seen by Provider: 02/26/19 12:17 - Related Data Home Medications Medication Instructions Recorded Confirmed Last Taken Gabapentin [Neurontin] 300 mg PO TID 12/31/15 02/01/19 12/31/15 hydroCHLOROthiazide [HCTZ] 25 mg PO QDAY 12/31/15 02/01/19 12/31/15 AtorvaSTATin [Lipitor] 20 mg PO QHS 02/01/19 02/01/19 Unknown Biotin 5 mg PO QDAY 02/01/19 02/01/19 Unknown Ca/D3/Mag Ox/Zinc/Grade Recorder/Melquiades/Bor 1 each PO QDAY 02/01/19 02/01/19 Unknown [Calcium 600-Vit D3-Min Chew Tb] Cyanocobalamin (Vitamin B-12) 5,000 mcg PO QWEEK 02/01/19 02/01/19 Unknown [Vitamin B-12] Famotidine 40 mg PO QDAY 02/01/19 02/01/19 Unknown Multivit-Min/Iron/Folic/Lutein 1 each PO QDAY 02/01/19 02/01/19 Unknown [Centrum Silver Women Tablet] Potassium Chloride [K-Dur] 10 meq PO BID 02/01/19 02/01/19 Unknown glipiZIDE [Glucotrol] 5 mg PO QDAY 02/01/19 02/01/19 Unknown metFORMIN [Glucophage] 500 mg PO BID 02/01/19 02/01/19 Unknown Previous Rx's Medication Instructions Recorded Last Taken Type Scopolamine 1 each TD 1XW 14 Days #5 patch.td.3 02/06/19 Unknown Rx Clindamycin [Clindamycin CAP] 300 mg PO Q8H 10 Days #30 cap 02/26/19 Unknown Rx HYDROcodone/APAP 5-325 [[place] 1 each PO Q6HR PRN #10 tablet 02/26/19 Unknown Rx 5/325] Allergies Allergy/AdvReac Type Severity Reaction Status Date / Time amoxicillin Allergy Anaphylaxis Verified 02/26/19 12:02 lisinopril Allergy Shortness Verified 02/26/19 12:02 of Breath ED Past Medical Hx - Medications Home Medications: Home Medications Medication Instructions Recorded Confirmed Last Taken Type Gabapentin [Neurontin] 300 mg PO TID 12/31/15 02/01/19 12/31/15 History hydroCHLOROthiazide [HCTZ] 25 mg PO QDAY 12/31/15 02/01/19 12/31/15 History AtorvaSTATin [Lipitor] 20 mg PO QHS 02/01/19 02/01/19 Unknown History Biotin 5 mg PO QDAY 02/01/19 02/01/19 Unknown History Ca/D3/Mag Ox/Zinc/Grade Recorder/Melquiades/Bor 1 each PO QDAY 02/01/19 02/01/19 Unknown History [Calcium 600-Vit D3-Min Chew Tb] Cyanocobalamin (Vitamin B-12) 5,000 mcg PO QWEEK 02/01/19 02/01/19 Unknown History [Vitamin B-12] Famotidine 40 mg PO QDAY 02/01/19 02/01/19 Unknown History Multivit-Min/Iron/Folic/Lutein 1 each PO QDAY 02/01/19 02/01/19 Unknown History [Centrum Silver Women Tablet] Potassium Chloride [K-Dur] 10 meq PO BID 02/01/19 02/01/19 Unknown History glipiZIDE [Glucotrol] 5 mg PO QDAY 02/01/19 02/01/19 Unknown History metFORMIN [Glucophage] 500 mg PO BID 02/01/19 02/01/19 Unknown History Scopolamine 1 each TD 1XW 14 Days #5 patch.td.3 02/06/19 Unknown Rx Clindamycin [Clindamycin CAP] 300 mg PO Q8H 10 Days #30 cap 02/26/19 Unknown Rx HYDROcodone/APAP 5-325 [[place] 1 each PO Q6HR PRN #10 tablet 02/26/19 Unknown Rx 5/325] ED Medical Decision Making - Lab Data Result diagrams: 02/26/19 12:33 02/26/19 12:33 - Radiology Data Radiology results: report reviewed, image reviewed - Medical Decision Making Lab Results 02/26/19 02/26/19 02/26/19 Range/Units 12:33 12:33 14:06 WBC 7.7 (4.5-11.0) K/mm3 RBC 3.90 (3.65-5.03) M/mm3 Hgb 12.0 (10.1-14.3) gm/dl Hct 35.4 (30.3-42.9) % MCV 91 (79-97) fl MCH 31 (28-32) pg MCHC 34 (30-34) % RDW 13.8 (13.2-15.2) % Plt Count 371 (140-440) K/mm3 Lymph % (Auto) 21.3 (13.4-35.0) % [place] % (Auto) 6.8 (0.0-7.3) % Eos % (Auto) 1.0 (0.0-4.3) % Baso % (Auto) 1.3 (0.0-1.8) % Lymph # 1.6 (1.2-5.4) K/mm3 [place] # 0.5 (0.0-0.8) K/mm3 Eos # 0.1 (0.0-0.4) K/mm3 Baso # 0.1 (0.0-0.1) K/mm3 Seg Neutrophils % 69.6 (40.0-70.0) % Seg Neutrophils # 5.4 (1.8-7.7) K/mm3 Sodium 141 (137-145) mmol/L Potassium 3.5 L (3.6-5.0) mmol/L Chloride 99.5 (98-107) mmol/L Carbon Dioxide 24 (22-30) mmol/L Anion Gap 21 mmol/L BUN 7 (7-17) mg/dL Creatinine 0.6 L (0.7-1.2) mg/dL Estimated GFR > 60 ml/min BUN/Creatinine Ratio 12 % Glucose 87 (65-100) mg/dL Calcium 9.4 (8.4-10.2) mg/dL Urine Color Yellow (Yellow) Urine Turbidity Clear (Clear) Urine pH 6.0 (5.0-7.0) Ur Specific [place] 1.015 (1.003-1.030) Urine Protein <15 mg/dl (Negative) mg/dL Urine Glucose (UA) Neg (Negative) mg/dL Urine Ketones 80 (Negative) mg/dL Urine Blood Sm (Negative) Urine Nitrite Neg (Negative) Urine Bilirubin Neg (Negative) Urine Urobilinogen < 2.0 (<2.0) mg/dL Ur Leukocyte Esterase Neg (Negative) Urine WBC (Auto) 1.0 (0.0-6.0) /HPF Urine RBC (Auto) 2.0 (0.0-6.0) /HPF U Epithel Cells (Auto) 3.0 (0-13.0) /HPF Urine Mucus 2+ /HPF Urine HCG, Qual Negative (Negative) Vital Signs 02/26/19 02/26/19 02/26/19 12:19 13:46 13:48 Temperature 98.1 F Pulse Rate 85 Respiratory 16 18 18 Rate Blood Pressure 144/92 O2 Sat by Pulse [address] NOTED DC HOME WITH DISCHARGE PLAN OF CARE AND SURGICAL FOLLOW UP. VSS AMBULATORY AND NON TOXIC ON DISCHARGE ED Disposition Clinical Impression: Cellulitis, abdominal wall Disposition: DC-01 TO HOME OR SELFCARE Is pt being admited?: No Does the pt Need Aspirin: No Condition: Stable Instructions: Cellulitis (ED) Prescriptions: Clindamycin [Clindamycin CAP] 300 mg PO Q8H 10 Days #30 cap HYDROcodone/APAP 5-325 [[place] 5/325] 1 each PO Q6HR PRN #10 tablet PRN Reason: Pain Referrals: FREDY BOYD MD [Staff Physician] - 24 Hours Time of Disposition: 17:26 <NADEEN MOORE - Last Filed: 02/27/19 21:50> ED Abdominal Pain HPI - General Source: patient Mode of arrival: Ambulatory Limitations: No Limitations - History of Present Illness Initial Comments: 48-year-old female status post gastric sleeve surgery 3 weeks ago. States surgery was signed here in this facility by Dr. Fredy Boyd. Patient reports 2 days ago, she began having pain in her belly button, redness in the area, and small amount of purulent drainage as well. Patient denies fever, nausea, vomiting. States pain is radiating down to the suprapubic area. Complaint: abdominal pain -: days(s) (2) Location: periumbilical Radiation: suprapubic Migration to: no migration Severity: moderate Quality: sharp Consistency: constant Improves With: nothing Worsens With: nothing Context: recent surgery/procedure Associated Symptoms: denies: nausea, vomiting, fever ED Review of Systems ROS: Stated complaint: PAIN FROM SURGERY Other details as noted in HPI Comment: All other systems reviewed and negative Constitutional: denies: chills, fever Gastrointestinal: abdominal pain. denies: nausea, vomiting Skin: change in color ED Past Medical Hx - Past Medical History Hx Hypertension: Yes Hx Heart Attack/AMI: No (normal nuc stress test) Hx Diabetes: Yes Hx GERD: Yes Hx Liver Disease: No Hx Renal Disease: No Hx Arthritis: Yes (WRISTS) Hx HIV: No Additional medical history: Chronic back pain/dislocation - Surgical History Additional Surgical History: , Back surgery, carpal tunnel surg - Social History Smoking Status: Never Smoker Substance Use Type: None ED Physical Exam - General Limitations: No Limitations General appearance: alert, in no apparent distress - Head Head exam: Present: atraumatic, normocephalic - Eye Eye exam: Present: normal appearance - ENT ENT exam: Present: mucous membranes moist - Neck Neck exam: Present: normal inspection - Respiratory Respiratory exam: Present: normal lung sounds bilaterally. Absent: respiratory distress - Cardiovascular Cardiovascular Exam: Present: regular rate, normal rhythm - GI/Abdominal GI/Abdominal exam: Present: soft, other (periumbilical erythema, small amount of purulent drainage from umbilicus, tender to palpation). Absent: distended - Extremities Exam Extremities exam: Present: normal inspection - Neurological Exam Neurological exam: Present: alert, oriented X3 - Psychiatric Psychiatric exam: Present: normal affect, normal mood - Skin Skin exam: Present: warm, dry ED Course Vital Signs 02/26/19 02/26/19 02/26/19 12:19 13:46 13:48 Temperature 98.1 F Pulse Rate 85 Respiratory 16 18 18 Rate Blood Pressure 144/92 Blood Pressure [Left] O2 Sat by Pulse 100 Oximetry 02/26/19 18:30 Temperature 98.4 F Pulse Rate 74 Respiratory 16 Rate Blood Pressure Blood Pressure 132/79 [Left] O2 Sat by Pulse 96 Oximetry ED Medical Decision Making - Lab Data Result diagrams: 02/26/19 12:33 02/26/19 12:33 - Medical Decision Making 48 yo F with periumbilical cellulitis, hx of gastric sleeve earlier this month. Pt afebrile, normal WBCs, labs unremarkable. Likely cellulitis only, however, CT obtained to rule out abscess. IV clindamycin given. Pt signed out to oncoming provider to follow-up on CT scan results. If negative, pt will be discharged home on PO clindamycin. Advised to follow up w/ Dr Boyd tomorrow. - Differential Diagnosis cellulitis, abscess Critical care attestation.: If time is entered above; I have spent that time in minutes in the direct care of this critically ill patient, excluding procedure time.
[2019-02-26] MEDS ORDERED: ZOFRAN ONE (13:41)
[2019-02-26] MEDS ORDERED: ZOFRAN IV ONE (13:46)
[2019-02-26 14:12] LABS: BUN/Creatinine Ratio 12; Blood Urea Nitrogen 7 mg/dL (7-17); Calcium 9.4 mg/dL (8.4-10.2); Hemolysis Index 48
[2019-02-26 14:47] LABS: Bilirubin,Urine NEG (Negative); Blood,Urine SM (Negative); Color,Urine Yellow (Yellow); Mucus,Urine 2+ /HPF; Protein,Urine <15 mg/dL mg/dL (Negative); Urobilinogen,Urine < 2.0 mg/dL (<2.0)
[2019-02-26 14:48] LABS: HCG Qualitative,Urine Negative (Negative)
[2019-02-26] MEDS ORDERED: CLEOCIN 900 MG/50 mL 900 MG/50 ML BAG IV ONE (16:15)
--- NOTE | 2019-02-26 17:21 | Cat Scan Report ---
PROCEDURE: CT ABDOMEN PELVIS W CON TECHNIQUE: Computerized axial tomography of the abdomen and pelvis was performed after the IV inject ion of iodinated nonionic contrast. CT DOSE LENGTH PRODUCT: 3464.1 mGycm HISTORY: gastric sleeve surgery 02/05; drainage from umbilicus COMPARISONS: None . FINDINGS: No acute lung base finding. Degenerative change in the regional skeleton. Lumbosacral junction dorsal fusion hardware appears int act without CT evidence of loosening. No acute fracture. Normal-appearing liver, gallbladder, adrenals, pancreas, and spleen. Intact normal caliber abdominal aorta and IVC. Normal-appearing kidneys and visible ureteral segments. Nonspecific fat stranding and slight soft tissue consolidation is noted in the no umbilical and periu mbilical region. This may be edema, inflammation, or infection. No abnormal fluid collections or absc ess. No evidence of ventral hernia. No retroperitoneal adenopathy. No mesenteric mass. Postoperative change in the stomach compatible wit h history of recent gastric sleeve procedure. Otherwise normal-appearing stomach and duodenum. No sma ll bowel distention in the abdomen and pelvis. No pelvic free fluid. Normal-appearing urinary bladder and adnexa. Uterus is not visualized which may be surgically absent. Normal-appearing rectum and sigmoid colon. No gross ascites, free air, or colo torrey distention. Normal-appearing cecum and terminal ileum. Normal appendix. IMPRESSION: Nonspecific fat stranding and soft tissue consolidation in the umbilical and periumbilical region may reflect edema, inflammation, or periumbilical cellulitis. No CT evidence of abscess Postoperative change in the stomach without CT evidence of acute gastric abnormality. This document is electronically signed by Alexis Donis MD., Feb 26 2019 05:20:01 PM ET
[2019-02-26 18:31] VITALS: BP 132/79
== END 2019-02-26 18:33 | disposition home or self-care (01) ==
LOC: ED 12:00
DX: L03.311 Cellulitis of abdominal wall (principal); I10 Essential (primary) hypertension; E11.9 Type 2 diabetes mellitus without complications; K21.9 Gastro-esophageal reflux disease without esophagitis; G89.29 Other chronic pain; M25.532 Pain in left wrist; M25.531 Pain in right wrist; Z79.84 Long term (current) use of oral hypoglycemic drugs; Z98.890 Other specified postprocedural states; Z88.1 Allergy status to other antibiotic agents; Z88.8 Allergy status to other drugs, medicaments and biological substances; Z79.899 Other long term (current) drug therapy
CPT/HCPCS: 36415; 74177; 80048; 81001; 81025; 85025; 96365; 96375; 96376; 99284; J2270; J2405; J7030; Q9967; 96361